=== PATIENT | male | born 1975 | race Caucasian/White ===

== ENCOUNTER → 2021-12-19 | Outpatient (CLI) | payer BC ==
[2021-12-19 18:24] LABS: HCT 44.3 % (39.6-50.0); HGB 14.7 g/dL (13.0-17.0); MCH 29.6 pg (27.0-32.0); MCHC 33.2 g/dL (32.0-37.0); MCV 89.3 fL (80.0-97.0); Mean Platelet Volume 9.6 fL (9.5-12.2); NRBC Per 100 WBC 0 /100 WBCS (0.0-0.0); Platelet Count 243 X 10*3/uL (140-440); RBC 4.96 X 10*6/uL (4.40-5.60); RDW 13.2 % (11.5-14.5); WBC 5.53 X 10*3/uL (4.50-10.00)
[2021-12-19 18:38] LABS: African American GFR (CKD) 102.7 (60.0-200.0); Anion Gap 9.3 mmol/L (10.00-18.00); Blood Urea Nitrogen 13.2 mg/dL (9.0-27.0); Carbon Dioxide 27.7 mmol/L (20.0-27.5); Non-African American GFR(CKD) 88.6 (60.0-200.0); Potassium 4.4 mmol/L (3.5-5.5)
== END | disposition home or self-care (01) ==
LOC: LABWHC1 10:57
PROVIDERS: ATTEND Internal Medicine Cardiovascular Disease
DX: R93.1 Abnormal findings on diagnostic imaging of heart and coronary circulation (principal)
CPT/HCPCS: 36415; 80051; 82565; 84520; 85027

== ENCOUNTER 2021-12-27 06:24 | Day surgery (SDC) | payer BC ==
[2021-12-26 08:41] VITALS: BMI 28.2
[~2021-12-27 06:24] MED LIST: ALPRAZolam 0.25 MG TAB PO PRN; ALPRAZolam 0.5 MG TAB PO PRN; ASPIRIN 325 MG TAB PO STA; ATORVASTATIN 80 MG TAB PO STA; HEPARIN SODIUM,PORCINE 10,000 UNIT in SODIUM CHLORIDE 0.9% 1,000 ML IRRIGATION PRN; HEPARIN SODIUM,PORCINE 2,500 UNIT in SODIUM CHLORIDE 0.9% 250 ML IRRIGATION PRN; NITROGLYCERIN SL TABS 0.4 MG TAB SUBLINGUAL PRN; SODIUM CHLORIDE 0.9% 1,000 ML in EMPTY BAG 1 BAG IV SCH
[2021-12-27] MEDS ORDERED: SODIUM CHLORIDE 0.9% 1,000 ML IV ONE (06:35)
[2021-12-27 07:08] VITALS: RESP 16; TEMP 98.2
[2021-12-27] MEDS ORDERED: HEPARIN SODIUM 1,000 UN/ML (10ML VL) ONE (07:33)
[2021-12-27] MEDS ORDERED: VERAPAMIL 2.5 MG/ML 2 ML AMP ONE (07:33)
[2021-12-27] MEDS: MIDAZOLAM 2 MG/2 ML VIAL IVP ONE ×2 (07:50→08:00)
[2021-12-27] MEDS ORDERED: LIDOCAINE 1% INJ 10MG/ML (30 ML VIAL-PF) SQ ONE (07:52)
[2021-12-27] MEDS ORDERED: fentaNYL (PF) 50 MCG/ML 2 ML AMP ONE (07:53)
[2021-12-27] MEDS ORDERED: fentaNYL (PF) 50 MCG/1 ML VIAL IVP ONE (07:54)
[2021-12-27] MEDS: VERAPAMIL SYRINGE (5 MG/10 ML) INTRAARTER ONE ×2 (07:58→08:01)
[2021-12-27] MEDS ORDERED: HEPARIN SODIUM 1,000 UN/ML (10ML VL) IVP ONE (07:59)
[2021-12-27] MEDS ORDERED: IOPAMIDOL-370 125ML BTL INJ ONE (08:12)
--- NOTE | 2021-12-27 12:40 | LTR ---
Dear Dinesh: I performed cardiac catheterization on Angel Borges. A detailed catheterization note is enclosed for records. In brief, the cardiac catheterization revealed normal coronary arteries and his stress test is a false-positive stress test. Thank you for giving me the privilege to participate in the care of this pleasant gentleman. RAJ / YESSENIA: [id number] /
--- NOTE | 2021-12-27 12:40 | CC ---
CARDIAC CATHETERIZATION REPORT INDICATION: Chest pain with abnormal stress test. PROCEDURE NOTE: After obtaining informed consent, left heart catheterization and coronary angiogram were performed via the right radial artery using size 3-1/2 right and left Daria catheters. Left ventricular pressures were obtained using the right Daria catheter. The patient tolerated the procedure well without any obvious immediate complications. He received moderate conscious sedation. Total sedation time was 16 minutes. Right radial artery access was obtained using modified Seldinger technique. A 6-Czech sheath was placed into the right radial artery. Catheters and wires were floated into the ascending aorta under fluoroscopic guidance and where catheters were exchanged. The patient received 5 mg of verapamil as per protocol and 5000 units of intravenous heparin. We repeated doses of verapamil because of vasospasm. We completed the procedure uneventfully and a TR band will be applied for hemostasis as per protocol. FINDINGS: 1. HEMODYNAMICS: Left ventricular end-diastolic pressure is 14 mm. There is no significant gradient across the aortic valve. 2. LEFT VENTRICULOGRAM: Not performed. 3. ANGIOGRAPHIC DATA: a.Right coronary artery is a small nondominant vessel and is free of stenosis. b.Left main coronary artery is a small vessel, divides into left anterior descending coronary artery and circumflex coronary artery. c.LAD and its branches, circumflex coronary artery and its branches are free of significant stenosis. CONCLUSION: 1. Left dominant circulation. 2. Normal coronary arteries. 3. Normal left ventricular end-diastolic pressure. PLAN: The patient's chest discomfort is noncardiac in origin and the stress test is a false- positive stress test. His management is going to be in the form of risk factor modification and optimal medical therapy. MMODL / IJN: [id number] /
[2021-12-27 13:13] VITALS: BP 115/67; PULSE 56
== END 2021-12-27 13:01 | disposition home or self-care (01) ==
LOC: CATHCVL 06:24
PROVIDERS: ATTEND Internal Medicine Cardiovascular Disease
DX: R07.9 Chest pain, unspecified (principal); R94.39 Abnormal result of other cardiovascular function study; I10 Essential (primary) hypertension; E78.5 Hyperlipidemia, unspecified; Z82.49 Family history of ischemic heart disease and other diseases of the circulatory system
CPT/HCPCS: 93458; C1769; J2250; J2001; J1644; Q9967; J3010

== ENCOUNTER 2023-07-05 15:55 | Emergency (ER) | payer BC ==
[2023-07-05 16:17] VITALS: TEMP 98.1
--- NOTE | 2023-07-05 16:18 | ED ---
Abdominal Pain HPI - General Chief Complaint: Abdominal Pain Stated Complaint: Back pain Time Seen by Provider: 07/05/23 16:06 Source: patient Mode of arrival: wheelchair Limitations: no limitations - History of Present Illness Initial Comments: This patient is a 48-year-old male who presents for evaluation of right flank pain. He states the pain started between 2 and 3 hours ago. He was getting into his vehicle at the time it started but denies any injury. He indicates right flank pain and states that it feels like it wraps to his groin. He has associated nausea and diaphoresis. No vomiting. He feels like he wants to urinate but has not been able to. No hematuria. He has not noted fever. MD Complaint: flank pain Onset/Timin -: hour(s) Location: R flank Radiation: RLQ Migration to: no migration Severity: severe Quality: aching Consistency: colicky Improves With: nothing Worsens With: nothing Associated Symptoms: nausea, other (Diaphoresis) - Related Data Home Medications Medication Instructions Recorded Confirmed Aspirin EC [Ecotrin Low Dose] 81 mg PO DAILY 12/26/21 12/27/21 Aspirin/Acetaminophen/Caffeine 1 each PO DAILY PRN 12/26/21 12/26/21 [Excedrin Migraine Caplet] Omeprazole 40 mg PO DAILY 12/26/21 12/26/21 Rosuvastatin Calcium 5 mg PO DAILY 12/26/21 12/26/21 Ubidecarenone [Coenzyme Q10] 200 mg PO DAILY 12/26/21 12/26/21 lisinopriL [Zestril] 10 mg PO DAILY 12/26/21 12/26/21 Previous Rx's Medication Instructions Recorded HYDROcodone/APAP 5-325MG [[place] 1 tab PO Q4HR PRN 3 Days #18 tab 07/05/23 5-325] HYDROcodone/APAP 5-325MG [[place] 1 tab PO Q4HR PRN 3 Days #18 tab 07/05/23 5-325] Ondansetron Odt [Zofran ODT] 4 mg PO Q8HR PRN #10 tab 07/05/23 Tamsulosin [Flomax] 0.4 mg PO DAILY #14 cap 07/05/23 Allergies Allergy/AdvReac Type Severity Reaction Status Date / Time No Known Allergies Allergy Verified 07/05/23 16:01 Review of Systems ROS Statement: Those systems with pertinent positive or pertinent negative responses have been documented in the HPI. ROS Other: All systems not noted in ROS Statement are negative. Constitutional: Denies: fever, chills, weakness Respiratory: Denies: cough, dyspnea Cardiovascular: Denies: chest pain, palpitations, edema Gastrointestinal: Reports: abdominal pain, nausea. Denies: vomiting, diarrhea Genitourinary: Reports: urgency. Denies: dysuria, frequency, hematuria, testicular pain, testicular mass Musculoskeletal: Denies: back pain Skin: Denies: rash Neurological: Denies: headache, weakness Past Medical History Past Medical History: GERD/Reflux, Hyperlipidemia, Hypertension Additional Past Medical History / Comment(s): FATIGUE, MALAISE, History of Any Multi-Drug Resistant Organisms: None Reported Past Surgical History: Orthopedic Surgery Additional Past Surgical History / Comment(s): LT shoulder surgery Past Anesthesia/Blood Transfusion Reactions: No Reported Reaction Past Psychological History: No Psychological Hx Reported Smoking Status: Never smoker Past Alcohol Use History: None Reported Past Drug Use History: None Reported - Past Family History Mother Family Medical History: No Reported History General Exam Limitations: no limitations General appearance: alert, in no apparent distress Head exam: Present: atraumatic, normocephalic Eye exam: Present: normal appearance. Absent: scleral icterus, conjunctival i njection Neck exam: Present: normal inspection Respiratory exam: Present: normal lung sounds bilaterally. Absent: respiratory distress, wheezes, rales, rhonchi, stridor, accessory muscle use Cardiovascular Exam: Present: regular rate, normal rhythm, normal heart sounds. Absent: systolic murmur, diastolic murmur, rubs, gallop GI/Abdominal exam: Present: soft. Absent: distended, tenderness, guarding, rebound, rigid, mass, pulsatile mass, hernia Extremities exam: Present: normal inspection, normal capillary refill. Absent: pedal edema, calf tenderness Back exam: Present: normal inspection. Absent: CVA tenderness (R), CVA tenderness (L), paraspinal tenderness, vertebral tenderness Neurological exam: Present: alert Skin exam: Present: warm, dry, intact, normal color. Absent: rash Course Vital Signs 07/05/23 07/05/23 15:59 18:11 Temperature 98.1 F Pulse Rate 69 57 L Respiratory 16 18 Rate Blood Pressure 144/95 121/76 O2 Sat by Pulse 100 98 Oximetry Medical Decision Making - Medical Decision Making The patient had CT scan that I interpreted to show right-sided kidney stone. Was pt. sent in by a medical professional or institution (CHRYSTAL Gilman, HISTORY DEPARTMENT CHAIR, urgent care, hospital, or half-way...) When possible be specific @ -[No] Did you speak to anyone other than the patient for history (EMS, parent, family, police, friend...)? What history was obtained from this source @ -[No] Did you review nursing and triage notes (agree or disagree)? Why? @ -[I reviewed and agree with nursing and triage notes] Were old charts reviewed (outside hosp., previous admission, EMS record, old EKG, old radiological studies, urgent care reports/EKG's, half-way records)? Report findings @ -[No old charts were reviewed] Differential Diagnosis (chest pain, altered mental status, abdominal pain women, abdominal pain men, vaginal bleeding, weakness, fever, dyspnea, syncope, headache, dizziness, GI bleed, back pain, seizure, CVA, palpatations, mental health, musculoskeletal)? @ -[n differential Abdominal Pain Men: Appendicitis, cholecystitis, diverticulosis, ischemic bowel, pancreatitis, hepatitis, UTI, gastroenteritis, AAA, incarcerated hernia, bowel obstruction, constipation, inflammatory bowel, hepatitis, peptic ulcer disease, splenic infarction, perforated viscus, testicular torsion, this is not meant to be an all-inclusive list EKG interpreted by me (3pts min.). @ -[As above] X-rays interpreted by me (1pt min.). @ -[None done] CT interpreted by me (1pt min.). @ -[I interpreted as above U/S interpreted by me (1pt. min.). @ -[None done] What testing was considered but not performed or refused? (CT, X-rays, U/S, labs)? Why? @ -[None] What meds were considered but not given or refused? Why? @ -[None] Did you discuss the management of the patient with other professionals (professionals i.e. CHRYSTAL Gilman, HISTORY DEPARTMENT CHAIR, lab, RT, psych nurse, social psychologist, shank cementer hand, teacher, hospital chief executive officer, pillowcase folder)? Give summary @ -[No] Was smoking cessation discussed for >3mins.? @ -[No] Was critical care preformed (if so, how long)? @ -[No] Were there social determinants of health that impacted care today? How? (Homelessness, low income, unemployed, alcoholism, drug addiction, transportation, low edu. Level, literacy, decrease access to med. care, long term, rehab)? @ -[No] Was there de-escalation of care discussed even if they declined (Discuss DNR or withdrawal of care, Hospice)? DNR status @ -[No] What co-morbidities impacted this encounter? (DM, HTN, Smoking, COPD, CAD, Cancer, CVA, ARF, Chemo, Hep., AIDS, mental health diagnosis, sleep apnea, morbid obesity)? @ -[None] Was patient admitted / discharged? Hospital course, mention meds given and rou te, prescriptions, significant lab abnormalities, going to OR and other pertinent info. @ -[Patient is 48-year-old man here to have evaluation for flank pain and found to have kidney stone. His symptoms have improved with treatment. We discussed the appropriate further care, follow-up, and return parameters. Undiagnosed new problem with uncertain prognosis? @ -[No] Drug Therapy requiring intensive monitoring for toxicity (Heparin, Nitro, Insulin, Cardizem)? @ -[No] Were any procedures done? @ -[No] Diagnosis/symptom? @ -[Acute flank pain Kidney stone Acute, or Chronic, or Acute on Chronic? @ -[Acute Uncomplicated (without systemic symptoms) or Complicated (systemic symptoms)? @ -[Uncomplicated Side effects of treatment? @ -[No] Exacerbation, Progression, or Severe Exacerbation? @ -[No] Poses a threat to life or bodily function? How? (Chest pain, [place], [place], pneumonia, PE, COPD, DKA, ARF, appy, cholecystitis, CVA, Diverticulitis, Homicidal, Suicidal, threat to staff... and all critical care pts) @ -[No] - Lab Data Result diagrams: 07/05/23 16:41 07/05/23 16:41 Lab Results 07/05/23 07/05/23 07/05/23 Range/Units 16:41 16:41 16:41 WBC 16.9 H (3.8-10.6) k/uL RBC 5.22 (4.30-5.90) m/uL Hgb 15.2 (13.0-17.5) gm/dL Hct 45.9 (39.0-53.0) % MCV 87.9 (80.0-100.0) fL MCH 29.2 (25.0-35.0) pg MCHC 33.2 (31.0-37.0) g/dL RDW 12.7 (11.5-15.5) % Plt Count 242 (150-450) k/uL MPV 7.4 Neutrophils % 85 % Lymphocytes % 10 % Monocytes % 4 % Eosinophils % 0 % Basophils % 0 % Neutrophils # 14.3 H (1.3-7.7) k/uL Lymphocytes # 1.7 (1.0-4.8) k/uL Monocytes # 0.6 (0-1.0) k/uL Eosinophils # 0.1 (0-0.7) k/uL Basophils # 0.0 (0-0.2) k/uL Sodium 137 (137-145) mmol/L Potassium 3.5 (3.5-5.1) mmol/L Chloride 102 (98-107) mmol/L Carbon Dioxide 24 (22-30) mmol/L Anion Gap 11 mmol/L BUN 20 (9-20) mg/dL Creatinine 1.09 (0.66-1.25) mg/dL Est GFR (CKD-EPI)AfAm >90 (>60 ml/min/1.73 sqM) Est GFR (CKD-EPI)NonAf 79 (>60 ml/min/1.73 sqM) Glucose 133 H (74-99) mg/dL Lactic Ac Sepsis Rflx Plasma Lactic Acid Caio (0.7-2.0) mmol/L Calcium 8.9 (8.4-10.2) mg/dL Total Bilirubin 0.6 (0.2-1.3) mg/dL AST 32 (17-59) U/L ALT 24 (4-49) U/L Alkaline Phosphatase 84 (38-126) U/L Total Protein 7.4 (6.3-8.2) g/dL Albumin 4.4 (3.5-5.0) g/dL Amylase 65 (30-110) U/L Lipase 105 (23-300) U/L Urine Color Yellow Urine Appearance Clear (Clear) Urine pH 5.5 (5.0-8.0) Ur Specific [place] 1.032 (1.001-1.035) Urine Protein 1+ H (Negative) Urine Glucose (UA) Negative (Negative) Urine Ketones 3+ H (Negative) Urine Blood Large H (Negative) Urine Nitrite Negative (Negative) Urine Bilirubin Negative (Negative) Urine Urobilinogen <2.0 (<2.0) mg/dL Ur Leukocyte Esterase Negative (Negative) Urine RBC 109 H (0-5) /hpf Urine WBC 2 (0-5) /hpf Urine Mucus Occasional H (None) /hpf 07/05/23 07/05/23 Range/Units 16:41 17:35 WBC (3.8-10.6) k/uL RBC (4.30-5.90) m/uL Hgb (13.0-17.5) gm/dL Hct (39.0-53.0) % MCV (80.0-100.0) fL MCH (25.0-35.0) pg MCHC (31.0-37.0) g/dL RDW (11.5-15.5) % Plt Count (150-450) k/uL MPV Neutrophils % % Lymphocytes % % Monocytes % % Eosinophils % % Basophils % % Neutrophils # (1.3-7.7) k/uL Lymphocytes # (1.0-4.8) k/uL Monocytes # (0-1.0) k/uL Eosinophils # (0-0.7) k/uL Basophils # (0-0.2) k/uL Sodium (137-145) mmol/L Potassium (3.5-5.1) mmol/L Chloride (98-107) mmol/L Carbon Dioxide (22-30) mmol/L Anion Gap mmol/L BUN (9-20) mg/dL Creatinine (0.66-1.25) mg/dL Est GFR (CKD-EPI)AfAm (>60 ml/min/1.73 sqM) Est GFR (CKD-EPI)NonAf (>60 ml/min/1.73 sqM) Glucose (74-99) mg/dL Lactic Ac Sepsis Rflx Y Plasma Lactic Acid Caio 2.9 H* (0.7-2.0) mmol/L Calcium (8.4-10.2) mg/dL Total Bilirubin (0.2-1.3) mg/dL AST (17-59) U/L ALT (4-49) U/L Alkaline Phosphatase (38-126) U/L Total Protein (6.3-8.2) g/dL Albumin (3.5-5.0) g/dL Amylase (30-110) U/L Lipase (23-300) U/L Urine Color Urine Appearance (Clear) Urine pH (5.0-8.0) Ur Specific [place] (1.001-1.035) Urine Protein (Negative) Urine Glucose (UA) (Negative) Urine Ketones (Negative) Urine Blood (Negative) Urine Nitrite (Negative) Urine Bilirubin (Negative) Urine Urobilinogen (<2.0) mg/dL Ur Leukocyte Esterase (Negative) Urine RBC (0-5) /hpf Urine WBC (0-5) /hpf Urine Mucus (None) /hpf Disposition Clinical Impression: Kidney stone on right side Disposition: HOME SELF-CARE Condition: Good Instructions (If sedation given, give patient instructions): Kidney Stones (ED) Prescriptions: Tamsulosin [Flomax] 0.4 mg PO DAILY #14 cap HYDROcodone/APAP 5-325MG [[place] 5-325] 1 tab PO Q4HR PRN 3 Days #18 tab PRN Reason: Pain HYDROcodone/APAP 5-325MG [[place] 5-325] 1 tab PO Q4HR PRN 3 Days #18 tab PRN Reason: Pain Ondansetron Odt [Zofran ODT] 4 mg PO Q8HR PRN #10 tab PRN Reason: Nausea Is patient prescribed a controlled substance at d/c from ED?: Yes Referrals: Dinesh Madrigal MD [Primary Care Provider] - 1-2 days Suleiman Weeks MD [STAFF PHYSICIAN] - 1-2 days
[2023-07-05] MEDS: KETOROLAC 15 MG/ML 1 ML VIAL IVP STA (16:27)
[2023-07-05] MEDS: SODIUM CHLORIDE 0.9% 1,000 ML IV STA (16:28)
[2023-07-05] MEDS: ONDANSETRON 4 MG/2 ML VIAL IVP STA (16:28)
[2023-07-05] MEDS: MORPHINE SULFATE 4 MG/ML SYRINGE IV STA ×2 (16:28→18:04)
[2023-07-05 16:54] LABS: Basophils % (A) 0 %; Eosinophils # (A) 0.1 k/uL (0-0.7); Eosinophils % (A) 0 %; HCT 45.9 % (39.0-53.0); HGB 15.2 gm/dL (13.0-17.5); Lymphocytes # (A) 1.7 k/uL (1.0-4.8); Lymphocytes % (A) 10 %; MCH 29.2 pg (25.0-35.0); MCHC 33.2 g/dL (31.0-37.0); MCV 87.9 fL (80.0-100.0); Mean Platelet Volume 7.4; Monocytes # (A) 0.6 k/uL (0-1.0); Monocytes % (A) 4 %; Neutrophils # (A) 14.3 k/uL (1.3-7.7); Neutrophils % (A) 85 %; Platelet Count 242 k/uL (150-450); RBC 5.22 m/uL (4.30-5.90); RDW 12.7 % (11.5-15.5); WBC 16.9 k/uL (3.8-10.6)
[2023-07-05 17:08] LABS: Appearance,Urine Clear (Clear); Bilirubin,Urine Negative (Negative); Blood,Urine Large (Negative); Color,Urine Yellow; Glucose,Urine (UA) Negative (Negative); Ketones,Urine 3+ (Negative); Leukocyte Esterase,Urine Negative (Negative); Mucus,Urine Occasional /hpf; Nitrite,Urine Negative (Negative); PH, Urine 5.5 (5.0-8.0); Protein,Urine 1+ (Negative); RBC,Urine 109 /hpf (0-5); Specific Gravity,Urine 1.032 (1.001-1.035); Urobilinogen,Urine <2.0 mg/dL (<2.0); WBC,Urine 2 /hpf (0-5)
--- NOTE | 2023-07-05 17:10 | CT ---
EXAMINATION TYPE: CT abdomen pelvis wo con CT DLP: 899.3 mGycm, Automated exposure control for dose reduction was used. DATE OF EXAM: 07/05/2023 4:49 PM COMPARISON: None1 CLINICAL INDICATION:Male, 48 years old with history of R flank pain, suspect stone; RIGHT FLANK PAIN TECHNIQUE: Axial CT abdomen pelvis wo con;Sagittal and coronal reformats were created on a separate workstation. Contrast used: mL of , (none if empty) Oral contrast used: without Oral Contrast (none if empty) FINDINGS: LOWER CHEST: Few scattered thin-walled air cysts in the lungs. ABDOMEN LIVER: Unremarkable GALLBLADDER AND BILE DUCTS: Layering gallstones in the gallbladder lumen.r PANCREAS: Unremarkable. SPLEEN: Unremarkable. ADRENAL GLANDS: Unremarkable. KIDNEYS AND URETERS: Mild right hydronephrosis secondary to an obstructing 5 mm calculus at the urete rovesicular junction. Additional bilateral nonobstructing calculi measuring up tor 5 mm in the right and 6 mm on the left. No left hydronephrosis. PELVIS BLADDER: Unremarkable REPRODUCTIVE: Unremarkable. ABDOMEN & PELVIS STOMACH AND BOWEL: No evidence of bowel obstruction. PERITONEUM/RETROPERITONEUM: No evidence of pneumoperitoneum or free fluid. VASCULATURE: No evidence of aortic aneurysm. MUSCULOSKELETAL: No acute osseous abnormalities LYMPH NODES: No gross evidence for lymphadenopathy. SOFT TISSUE/ABDOMINAL WALL: Unremarkable IMPRESSION: Mild right hydronephrosis secondary to obstructing 5 mm calculus at the ureterovesicular junction. Ad ditional bilateral nonobstructing calculi measuring up tor 5 mm in the right and 6 mm on the left.
[2023-07-05 17:14] LABS: ALT 24 U/L (4-49); AST 32 U/L (17-59); African American GFR (CKD) >90 (>60 ml/min/1.73 sqM); Albumin 4.4 g/dL (3.5-5.0); Alkaline Phosphatase 84 U/L (38-126); Amylase 65 U/L (30-110); Anion Gap 11 mmol/L; Blood Urea Nitrogen 20 mg/dL (9-20); Calcium 8.9 mg/dL (8.4-10.2); Carbon Dioxide 24 mmol/L (22-30); Chloride 102 mmol/L (98-107); Glucose 133 mg/dL (74-99); Lipase 105 U/L (23-300); Non-African American GFR(CKD) 79 (>60 ml/min/1.73 sqM); Potassium 3.5 mmol/L (3.5-5.1); Sodium 137 mmol/L (137-145); Total Bilirubin 0.6 mg/dL (0.2-1.3); Total Protein 7.4 g/dL (6.3-8.2)
[2023-07-05] MEDS: TAMSULOSIN 0.4 MG CAP.ER.24H PO STA (17:53)
[2023-07-05 18:14] VITALS: BP 121/76; PULSE 57; RESP 18
== END 2023-07-05 18:13 | disposition home or self-care (01) ==
LOC: EC 15:55
DX: N13.2 Hydronephrosis with renal and ureteral calculous obstruction (principal)
CPT/HCPCS: 36415; 80053; 82150; 83605; 83690; 85025; 81001; 74176; 99284; 96374; 96375 ×2; 96376; 96361 ×2; J2270; J2405; J1885

== ENCOUNTER → 2023-12-01 | Outpatient (CLI) | payer BC ==
--- NOTE | 2023-12-01 09:36 | MR ---
EXAMINATION TYPE: MR lumbar spine wo con DATE OF EXAM: 12/01/2023 COMPARISON: CT abdomen and pelvis 07/05/2023 HISTORY: Rt side low back pain into rt hip TECHNIQUE: Multiplanar, multisequence images of the lumbar spine were acquired without IV contrast. FINDINGS: The lumbar vertebral bodies do have preserved heights and alignment. Disc height loss at L5-S1. The conus medullaris and the distal spinal cord do appear unremarkable with regards to their signal intensity and morphology. L1-L2: No significant disc pathology is identified. The spinal canal and neural foramen are patent. L2-L3: No significant disc pathology is identified. The spinal canal and neural foramen are patent. L3-L4: No significant disc pathology is identified. The spinal canal and neural foramen are patent. L4-L5: Broad-based disc bulge is identified with associated enlargement of the facet joints. Promine nt posterior epidural fat. The spinal canal is mild to moderately narrowed. Neural canals are mildly narrowed bilaterally. L5-S1: The intervertebral disc appears flattened on its contour posteriorly without significant mass effect upon the thecal sac. Facet joints are enlarged. Right neural canal is patent. Mild left neur al canal narrowing. Other significant findings: None. IMPRESSION: L4-L5 and L5-S1 degenerative disc disease with associated osteoarthritic changes. No disc herniation identified. Disc bulge L4-L5 with prominent epidural fat resulting in mild to moderate narrowing of t he central spinal canal. Bilateral facet arthropathy resulting in mild bilateral neuroforaminal steno sis. Additionally there is mild left neural foraminal narrowing at L5-S1 secondary to facet arthropat hy. [facility], , 12/01/2023 9:34 AM
== END | disposition home or self-care (01) ==
LOC: RADMRIMAIN 05:53
PROVIDERS: ATTEND Internal Medicine
DX: M51.36 Other intervertebral disc degeneration, lumbar region
CPT/HCPCS: 72148